=== PATIENT | male | born 1945 | race Caucasian/White ===

== ENCOUNTER 2023-01-23 04:40 | Emergency (ER) | payer OTHER ==
[~2023-01-23] VITALS: Ht 180.3 cm; Wt 96.0 kg
[2023-01-23 04:40] VITALS: TEMP 98
[2023-01-23] MEDS ORDERED: ACETAMINOPHEN 500 MG TAB PO ONE (07:45)
[2023-01-23 07:51] LABS: Basophils # (auto) 0.1 10 ^3/uL (0-0.2); Basophils % (auto) 0.8 % (0.0-2.0); Eosinophils # (auto) 0 10 ^3/uL (0-0.8); Eosinophils % (auto) 0.5 % (0.0-7.0); Hematocrit 44.2 % (41.0-53.0); Hemoglobin 15.6 g/dL (13.5-17.5); Lymphocytes # (auto) 1.6 10 ^3/uL (0.4-5.4); Lymphocytes % (auto) 25.4 % (10.0-50.0); Mean Corpuscular Hemoglobin 31.6 pg (28.0-32.0); Mean Corpuscular Hgb Conc. 35.2 g/dL (32.0-36.0); Mean Corpuscular Volume 89.8 fL (80.0-100.0); Monocytes # (auto) 0.5 10 ^3/uL (0-1.3); Monocytes % (auto) 7.6 % (0.0-12.0); Neutrophils # (auto) 4.1 10 ^3/uL (1.6-8.6); Neutrophils % (auto) 65.7 % (37.0-80.0); Nucleated Red Blood Cells % 0.2 %; Red Blood Cells 4.93 10^6/uL (4.5-5.90); Red Cell Distribution Width 13.9 % (11.8-14.3); White Blood Cell 6.2 10^3/uL (4.4-10.8)
[2023-01-23 08:15] LABS: Alanine Aminotransferase 27 U/L (7-40); Albumin 4.4 g/dL (3.2-4.8); Alkaline Phosphatase 66 U/L (46-116); Anion Gap 6.5 (5-15); Aspartate Aminotransferase 28 U/L (13-40); BUN/Creatinine Ratio 15.6 (10.0-20.0); Bilirubin, Total 0.7 mg/dL (0.2-1.0); Blood Urea Nitrogen 15 mg/dL (9-23); Carbon Dioxide 24.5 mmol/L (20-30); Chloride 109 mmol/L (98-107); Glucose 122 mg/dL (74-106); Potassium 4.5 mmol/L (3.5-5.1); Sodium 140 mmol/L (136-145)
[2023-01-23 15:00] VITALS: PULSE 76; RESP 18; O2SAT 95
[2023-01-23 18:09] VITALS: BP 164/86; PULSE 76; RESP 18; O2SAT 95
[2023-01-23] MEDS ORDERED: NEOMYCIN-BACITRACIN-POLYM UNITDOSE PKG TOP OINT TOP ONE (18:15)
== END 2023-01-23 19:05 | disposition home or self-care (01) ==
LOC: ER 04:40
DX: S02.2XXA Fracture of nasal bones, initial encounter for closed fracture (principal); R77.8 Other specified abnormalities of plasma proteins; W18.09XA Striking against other object with subsequent fall, initial encounter; Y93.89 Activity, other specified; Y92.89 Other specified places as the place of occurrence of the external cause; Y99.8 Other external cause status
CPT/HCPCS: 36415; 70450; 70486; 72125; 80053; 82550; 83880; 84484; 85025

== ENCOUNTER 2023-10-02 12:21 | Emergency (ER) | payer OTHER ==
[~2023-10-02] VITALS: Ht 177.8 cm; Wt 98.1 kg
[2023-10-02 13:49] VITALS: BP 153/79; PULSE 93; RESP 16; TEMP 98.2; O2SAT 94
[2023-10-02] MEDS ORDERED: LIDO5CRE14 EX (15:00)
[2023-10-02] MEDS ORDERED: DICL1GEL59 EX (15:00)
[2023-10-02] MEDS ORDERED: ACET-1881 PO (15:00)
== END 2023-10-02 15:07 | disposition home or self-care (01) ==
LOC: ER 12:21
DX: M54.50 Low back pain, unspecified (principal); G89.29 Other chronic pain; M54.9 Dorsalgia, unspecified; Z88.0 Allergy status to penicillin; Z79.899 Other long term (current) drug therapy
CPT/HCPCS: 72100; 93005